=== PATIENT | female | born 1945 | race Caucasian/White ===

== ENCOUNTER 2024-03-21 10:25 | Emergency (ER) | payer MEDICARE, BC ==
[2024-03-21] MEDS ORDERED: Sodium Chloride 0.9% 10 ML Syringe FLUSH PRN (10:47)
[2024-03-21] MEDS ORDERED: Sodium Chloride 0.9% 2.5 ML Syringe FLUSH PRN (10:47)
[2024-03-21] MEDS: Ondansetron 4 MG/2 ML SDV IVPUSH ONE (11:34)
[2024-03-21 12:02] LABS: A/G RATIO 0.6 (0.9-1.6); BILIRUBIN TOTAL 0.6 mg/dL (0.2-1.0); CALCIUM 8.6 mg/dL (8.5-10.1); CARBON DIOXIDE,CO2 28.1 mmol/L (21.0-32.0); CREATININE 0.8 mg/dL (0.6-1.0); EST CRCL DRUG DOSING (CG) 44.36 mL/min; PROTEIN TOTAL,TP 7.7 g/dL (6.4-8.2)
[2024-03-21 12:21] LABS: POTASSIUM,K 2.8 mmol/L (3.5-5.1)
[2024-03-21 12:22] LABS: BASOPHILS ABSOLUTE AUTO 0.02 K/uL (0.00-0.20); BASOPHILS PERCENT AUTO 0.2 % (0.0-1.0); HEMATOCRIT 33.3 % (37.0-47.0); HEMOGLOBIN 10.8 g/dL (12.0-16.0); IMMATURE GRAN ABSOLUTE AUTO 0.04 K/uL (0.00-0.05); IMMATURE GRAN PERCENT AUTO 0.4 % (0.0-0.4); LYMPHOCYTES ABSOLUTE AUTO 0.22 K/uL (1.00-4.80); MEAN CORPUSCULAR HEMOGLOBIN 27.8 pg (28.0-32.0); MEAN CORPUSCULAR HGB CONC 32.4 g/dL (32.0-36.0); MEAN CORPUSCULAR VOLUME 85.8 fL (83.0-99.0); MEAN PLATELET VOLUME 8.5 fL (9.4-12.3); MONOCYTES PERCENT AUTO 4.5 % (0.0-8.0); NEUTROPHILS PERCENT AUTO 92.9 % (41.0-71.0); PLATELET COUNT,PLT 317 K/uL (150-400); RED BLOOD CELL COUNT 3.88 M/uL (4.10-5.30); WHITE BLOOD CELL COUNT,WBC 11.18 K/uL (3.9-11.3)
[2024-03-21] MEDS: fentaNYL 50 MCG/ML SDV IVPUSH ONE ×2 (12:38→15:26)
[2024-03-21] MEDS: Sodium Chloride 0.9% 1,000 ML IV ONE ×2 (12:38→15:15)
[2024-03-21] MEDS: Iopamidol 755 MG/ML 500 ML Multipack Bottle IVPUSH STA (12:57)
[2024-03-21] MEDS: Potassium Chloride 20 MEQ Tab.ER PO ONE (13:49)
[2024-03-21 14:14] LABS: APPEARANCE,URINE CLEAR; BILIRUBIN,URINE NEGATIVE (NEGATIVE); COLOR,URINE YELLOW; GLUCOSE,URINE NEGATIVE (NEGATIVE); KETONES,URINE NEGATIVE (NEGATIVE); LEUKOCYTE ESTERASE,URINE SMALL (NEGATIVE); NITRITE,URINE NEGATIVE (NEGATIVE); OCCULT BLOOD,URINE SMALL (NEGATIVE); PROTEIN,URINE NEGATIVE (NEGATIVE); UROBILINOGEN,URINE 0.2 EU/dL (<2.0)
[2024-03-21 14:23] LABS: BACTERIA,URINE 1+ (NEGATIVE); EPITHELIAL CELLS,URINE MANY (NONE-FEW)
[2024-03-21] MEDS ORDERED: Lidocaine 5% Oint 35.44 GM Tube TOP ONE (15:06)
[2024-03-21] MEDS: Lidocaine 2% Viscous Solution 15 ML UD PO ONE (15:13)
[2024-03-21] MEDS: Piperacillin/Tazobactam 4.5 GM in Sodium Chloride 0.9% 100 ML IV ONE (15:14)
== END 2024-03-21 17:33 ==
LOC: MW.ED 10:25
DX: K55.019 Acute (reversible) ischemia of small intestine, extent unspecified (principal); K56.609 Unspecified intestinal obstruction, unspecified as to partial versus complete obstruction; I10 Essential (primary) hypertension; Z75.8 Other problems related to medical facilities and other health care
CPT/HCPCS: 36415; 43752; 74018; 74177; 80053; 81001; 83605; 83690; 85025; 93005; 96361; 96365; 96375; 96376; 99285; A9270; J2543; J3010; J3490; J7030; Q9967; 93010; 99284

== ENCOUNTER 2024-12-02 14:45 | Observation (INO) | payer OTHER, MEDICARE, BC ==
[2024-12-02] MEDS ORDERED: Sodium Chloride 0.9% 10 ML Syringe FLUSH PRN (14:53)
[2024-12-02] MEDS ORDERED: Sodium Chloride 0.9% 2.5 ML Syringe FLUSH PRN (14:53)
[2024-12-02 15:01] LABS: BASOPHILS ABSOLUTE AUTO 0.04 K/uL (0.00-0.20); BASOPHILS PERCENT AUTO 0.7 % (0.0-1.0); EOSINOPHILS ABSOLUTE AUTO 0.16 K/uL (0.00-0.45); EOSINOPHILS PERCENT AUTO 2.6 % (0.0-6.0); IMMATURE GRAN ABSOLUTE AUTO 0.07 K/uL (0.00-0.05); IMMATURE GRAN PERCENT AUTO 1.2 % (0.0-0.4); LYMPHOCYTES ABSOLUTE AUTO 1.06 K/uL (1.00-4.80); LYMPHOCYTES PERCENT AUTO 17.5 % (24.0-44.0); MEAN PLATELET VOLUME 8.8 fL (9.4-12.3); MONOCYTES ABSOLUTE AUTO 0.53 K/uL (0.00-0.80); MONOCYTES PERCENT AUTO 8.8 % (0.0-8.0); NEUTROPHILS ABSOLUTE AUTO 4.19 K/uL (1.80-7.70); NEUTROPHILS PERCENT AUTO 69.2 % (41.0-71.0); NRBC ABSOLUTE 0.00 K/uL (0.00-0.02); NRBC PERCENT 0.0 /100WBC (0.0-0.2); PLATELET COUNT,PLT 241 K/uL (150-400); RED BLOOD CELL COUNT 3.52 M/uL (4.10-5.30); WHITE BLOOD CELL COUNT,WBC 6.05 K/uL (3.9-11.3)
[2024-12-02 15:15] LABS: INR 1.2 (0.86-1.11); PTT,PARTIAL THROMBOPLSTIN TIME 30.9 SEC (23.9-30.7)
[2024-12-02 15:36] LABS: A/G RATIO 0.9 (0.9-1.6); ALANINE AMINOTRANSFERASE,ALT 19 IU/L (14-63); ASPARTATE AMNIOTRANSFERASE,AST 21 IU/L (15-37); BILIRUBIN TOTAL 0.4 mg/dL (0.2-1.0); BLOOD UREA NITROGEN,BUN 15 mg/dL (7.0-18.0); CARBON DIOXIDE,CO2 24.7 mmol/L (21.0-32.0); CHLORIDE,CL 97 mmol/L (98-107); CREATINE KINASE,CK 94 U/L (26-308); CREATININE 0.7 mg/dL (0.6-1.0); GLUCOSE RANDOM 118 mg/dL (74-106); POTASSIUM,K 3.1 mmol/L (3.5-5.1); PROTEIN TOTAL,TP 6.9 g/dL (6.4-8.2); SODIUM,NA 130 mmol/L (136-145)
[2024-12-02 15:37] LABS: ESTIMATED GFR 87 mL/min (>60)
[2024-12-02] MEDS: Bacitracin Oint 1 GM U/D Packet TOP ONE (17:26)
[2024-12-02] MEDS: Potassium Chloride 20 MEQ Tab.ER PO ONE (18:57)
[2024-12-02] MEDS: Magnesium Sulfate 2 GM/50 mL 2 GM in Premix Bag 1 BAG IV ONE (18:58)
[2024-12-02] MEDS: Potassium Chloride 20 MEQ in Premix Bag 1 BAG IV ONE (19:55)
[2024-12-03 05:31] LABS: BASOPHILS ABSOLUTE AUTO 0.03 K/uL (0.00-0.20); BASOPHILS PERCENT AUTO 0.4 % (0.0-1.0); EOSINOPHILS ABSOLUTE AUTO 0.10 K/uL (0.00-0.45); EOSINOPHILS PERCENT AUTO 1.5 % (0.0-6.0); IMMATURE GRAN ABSOLUTE AUTO 0.02 K/uL (0.00-0.05); IMMATURE GRAN PERCENT AUTO 0.3 % (0.0-0.4); LYMPHOCYTES ABSOLUTE AUTO 0.70 K/uL (1.00-4.80); LYMPHOCYTES PERCENT AUTO 10.3 % (24.0-44.0); MEAN PLATELET VOLUME 8.5 fL (9.4-12.3); MONOCYTES ABSOLUTE AUTO 0.68 K/uL (0.00-0.80); MONOCYTES PERCENT AUTO 10.0 % (0.0-8.0); NEUTROPHILS ABSOLUTE AUTO 5.24 K/uL (1.80-7.70); NEUTROPHILS PERCENT AUTO 77.5 % (41.0-71.0); NRBC ABSOLUTE 0.00 K/uL (0.00-0.02); NRBC PERCENT 0.0 /100WBC (0.0-0.2); PLATELET COUNT,PLT 241 K/uL (150-400); RED BLOOD CELL COUNT 4.09 M/uL (4.10-5.30); WHITE BLOOD CELL COUNT,WBC 6.77 K/uL (3.9-11.3)
[2024-12-03 05:54] LABS: BLOOD UREA NITROGEN,BUN 11.0 mg/dL (7.0-18.0); CARBON DIOXIDE,CO2 24.2 mmol/L (21.0-32.0); CHLORIDE,CL 96.0 mmol/L (98-107); CREATININE 0.7 mg/dL (0.6-1.0); EST CRCL DRUG DOSING (CG) 45.27 mL/min; GLUCOSE RANDOM 108.0 mg/dL (74-106); POTASSIUM,K 3.8 mmol/L (3.5-5.1); SODIUM,NA 130.0 mmol/L (136-145)
[2024-12-03 05:56] LABS: ESTIMATED GFR 87.0 mL/min (>60)
== END 2024-12-03 13:45 | disposition home or self-care (01) ==
LOC: MW.ED 14:45 → MW.MS 18:52
PROVIDERS: ADMIT Internal Medicine; ATTEND Internal Medicine
DX: S06.0X0A Concussion without loss of consciousness, initial encounter (principal); S20.219A Contusion of unspecified front wall of thorax, initial encounter; S40.819A Abrasion of unspecified upper arm, initial encounter; I10 Essential (primary) hypertension; E87.6 Hypokalemia; E83.42 Hypomagnesemia; E87.1 Hypo-osmolality and hyponatremia; Z79.899 Other long term (current) drug therapy; V47.0XXA Car driver injured in collision with fixed or stationary object in nontraffic accident, initial encounter
CPT/HCPCS: 36415; 70450; 71045; 71260; 72125; 74177; 80048; 80053; 82550; 83690; 83735; 84484; 85025; 85610; 85730; 93005; A9270; J3475; J3480; J7050; 72128-26; 72131-26; 99222; 99284